=== PATIENT | female | born 1955 | race Caucasian/White ===

== ENCOUNTER 2023-09-07 10:22 | Outpatient (CLI) | payer BC, SELFPAY | END 2023-09-07 10:23 | disposition home or self-care (01) | PROVIDERS: PCP Physician Assistant Medical; Visit Provider Physician Assistant Medical | DX: Z13.220 Encounter for screening for lipoid disorders (principal); Z13.228 Encounter for screening for other metabolic disorders; Z13.29 Encounter for screening for other suspected endocrine disorder | CPT/HCPCS: 80053; 80061; 84439; 84443 ==

== ENCOUNTER 2024-02-07 07:50 | Outpatient (CLI) | payer BC, SELFPAY | END 2024-02-07 07:51 | disposition home or self-care (01) | LOC: NFLDREF 02-08 10:42 | PROVIDERS: PCP Physician Assistant Medical; Referring Provider Physician Assistant Medical; Visit Provider Physician Assistant Medical | DX: E03.8 Other specified hypothyroidism (principal); E78.5 Hyperlipidemia, unspecified | CPT/HCPCS: 80061; 84439; 84443 ==

== ENCOUNTER 2024-02-10 08:22 | Outpatient (CLI) | payer BC, SELFPAY ==
--- NOTE | 2024-02-10 08:45 | CRLHL7_ITS ---
For Patients: As a result of the Cures Act, medical imaging exams and procedure reports are released immediately into your electronic medical record. You may view this report before your referring provider. If you have questions, please contact your health care provider. BILATERAL SCREENING MAMMOGRAM WITH COMPUTER-AIDED DETECTION AND TOMOSYNTHESIS TECHNIQUE: CC and MLO views were obtained. These mammographic images have been obtained using full-field digital technique. These mammographic images were interpreted with the benefit of computer-aided detection. Breast Tomosynthesis was used in this interpretation. COMPARISON FILM: 01/21/23, 11/21/20, 07/02/10. FINDINGS: The breasts are almost entirely fatty IMPRESSION: There is no radiographic evidence for malignancy. ASSESSMENT: BI-RADS Category 1: Negative RECOMMENDATION: Routine screening mammogram in 1 year. A lay language report of this examination will be provided to the patient. Cody Clemente M.D. Diagnostic Radiologist [email or web address] KARLOS/[email or web address] / bM/Dictated by: Cody Clemente MD @ 02/10/2024 11:49:00 AM (Electronically Signed)
== END 2024-02-10 08:23 | disposition home or self-care (01) ==
LOC: MAMMO 08:22
PROVIDERS: PCP Physician Assistant Medical; Visit Provider Physician Assistant Medical
DX: Z12.31 Encounter for screening mammogram for malignant neoplasm of breast (principal)
CPT/HCPCS: 77063; 77067

== ENCOUNTER 2024-11-02 10:23 | Outpatient (CLI) | payer MEDICARE, SELFPAY ==
--- NOTE | 2024-11-02 10:45 | CRLHL7_ITS ---
For Patients: As a result of the Century Cures Act, medical imaging exams and procedure reports are released immediately into your electronic medical record. You may view this report before your referring provider. If you have questions, please contact your health care provider. INDICATION: BILATERAL SCREENING MAMMOGRAM, ASYMPTOMATIC 69 Y/O FEMALE COMPARISON: 02/10/24, 01/21/23, 11/21/20 TECHNIQUE: CC and MLO views were obtained. These mammographic images have been obtained using full-field digital technique. These mammographic images were interpreted with the benefit of computer aided detection and tomosynthesis. BREAST COMPOSITION: The breasts are almost entirely fatty. FINDINGS: No suspicious findings. ASSESSMENT: BI-RADS 1 Negative RECOMMENDATION: Annual screening mammogram. A lay language report of this examination will be provided to the patient. Dictated by: Cody Clemente MD @ 11/06/2024 12:08:05 (Electronically Signed)
== END 2024-11-02 10:24 | disposition home or self-care (01) ==
LOC: MAMMO 10:28
PROVIDERS: PCP Physician Assistant Medical; Visit Provider Physician Assistant Medical
DX: Z12.31 Encounter for screening mammogram for malignant neoplasm of breast (principal)
CPT/HCPCS: 77063; 77067

== ENCOUNTER 2025-03-14 13:27 | Outpatient (CLI) | payer MEDICARE, SELFPAY | END 2025-03-14 13:28 | disposition home or self-care (01) | PROVIDERS: PCP Physician Assistant Medical; Visit Provider Physician Assistant Medical | DX: E03.8 Other specified hypothyroidism (principal); E78.5 Hyperlipidemia, unspecified | CPT/HCPCS: 80053; 80061; 84443 ==

== ENCOUNTER 2025-03-28 12:43 | Outpatient (CLI) | payer MEDICARE, SELFPAY ==
--- NOTE | 2025-03-28 13:00 | CRLHL7_ITS ---
For Patients: As a result of the Century Cures Act, medical imaging exams and procedure reports are released immediately into your electronic medical record. You may view this report before your referring provider. If you have questions, please contact your health care provider. DXA BONE MINERAL DENSITY STUDY Current height (in): 65.5. Weight (lb): 162. Menopause age: 52. Ethnicity: White. 1. Have you had a previous hip or vertebral fracture? No. 2. Have you had any fractures during your adult life which did not result from significant trauma (e.g., auto accident)? No. 3. Did either of your parents have a hip fracture? No. 4. Do you smoke? Yes. 5. Have you ever taken Glucocorticoids? No. 6. Do you have rheumatoid arthritis? No. 7. Do you have secondary osteoporosis? No. 8. Do you drink 3 or more alcoholic drinks per day? No. 9. Are you being treated for osteoporosis? No. 10. Have you ever taken any of the following medications: Actonel, Evista, Fosamax, Miacalcin, Reclast, Boniva, Forteo, HRT (i.e. estrogen/hormone therapy), Protelos, Prolia, Vitamin D, Calcium, other ??? please specify. ANSWER: Yes, vitamin D and calcium. 11. Do you have any of the following medical conditions: Anorexia or bulimia, asthma or emphysema, end stage renal disease, hyperparathyroidism, any seizure disorders, cancer, inflammatory bowel diseases, hysterectomy, other ??? please specify. ANSWER: No. 12. What was your maximum height (inches)? 66. 13. Do you perform weight bearing exercise regularly? No. 14. Do you regularly consume dairy products? Yes. 15. Do you drink caffeinated beverages? Yes. 16. At what age did your period start? 11. 17. Are you premenopausal? No. 18. How many full-term pregnancies have you had? 1. 19. Have you ever missed your period for more than 6 months in a row (not including or menopause)? No. TECHNIQUE: Bone mineral density study was performed using the [employer]. FINDINGS: The results of the study expressed as bone mineral density (BMD) are as follows: Lumbar spine L1 to L4: BMD: 0.928 g/cm2. T-score: -1.1. Z-score: 1.0 Neck Left: BMD: 0.724 g/cm2. T-score: -1.1. Z-score: 0.7 Right: BMD: 0.672 g/cm2. T-score: -1.6. Z-score: 0.2 Total Left: BMD: 0.907 g/cm2. T-score: -0.3. Z-score: 1.2 Right: BMD: 0.903 g/cm2. T-score: -0.3. Z-score: 1.2 IMPRESSION: Osteopenia. *Comparison exams done prior to 12/2019 were performed on different unit, [employer]. FRAX 10-year Fracture Risk Major Osteoporotic Fracture: 10% Hip Fracture: 2.4% Reported Risk Factors: [place] () Neck BMD=0.672, BMI=26.5, smoking Cody Clemente M.D. Diagnostic Radiologist [email or web address] KARLOS/[email or web address] [email or web address]/Dictated by: Cody Clemente MD @ 03/29/2025 11:28:00 AM (Electronically Signed)
== END 2025-03-28 12:44 | disposition home or self-care (01) ==
PROVIDERS: PCP Physician Assistant Medical; Visit Provider Physician Assistant Medical
DX: M85.80 Other specified disorders of bone density and structure, unspecified site (principal); M85.89 Other specified disorders of bone density and structure, multiple sites
CPT/HCPCS: 77080